=== PATIENT | female | born 1955 | race Caucasian/White ===

== ENCOUNTER 2019-01-18 15:20 | Observation (INO) ==
[2019-01-18] MEDS ORDERED: ASPIRIN 325 MG TABLET PO STA (16:15)
[2019-01-18] MEDS: NITROGLYCERIN SL 0.4 MG TABLET SL PRN ×3 (16:22→16:53)
[2019-01-18 16:26] LABS: Basophils # 0.1 10*3/uL (0.0-0.2); Eosinophils # 0.1 10*3/uL (0.0-0.87); Eosinophils % 1.8 % (0.00-10.9); Hematocrit 37.6 VOL% (35.7-47.0); Immature Granulocytes % 0.6 %; Immature Granulocytes Absolute 0.04 #; Lymphocytes # 2.5 10*3/uL (1.4-4.0); Lymphocytes % 34.5 % (21.3-54.2); Mean Corpuscular HGB Conc 31.9 GM/DL (32-36); Mean Corpuscular Volume 90.2 FL (87-102); Mean Platelet Volume 9.5 FL (9.6-12.0); Neutrophils % 55.1 % (38.7-73.9); Platelet Count 194 T/CUMM (130-400); Red Blood Count 4.17 MC/CUMM (3.8-5.5); Red Cell Distribution Width 14.1 % (9.3-17.3); White Blood Count 7.2 T/CUMM (4-12)
[2019-01-18 16:41] LABS: INR 0.9; PT Patient Result 10.1 SECS
[2019-01-18 16:44] LABS: Calcium 8.5 MG/DL (8.5-10.1); Osmolality,Calculated 282.4 MOS/KG (273-304)
[2019-01-18] MEDS ORDERED: MORPHINE 4 MG/1 ML VIAL IV STA (17:03)
[2019-01-18] MEDS ORDERED: ONDANSETRON 4 MG/2 ML VIAL IV STA (17:04)
[2019-01-18] MEDS ORDERED: POTASSIUM CHLORIDE 20 MEQ TABLET PO PRN (17:33)
[2019-01-18] MEDS ORDERED: MAGNESIUM SULF RIDER 2 GM in PREMIX 1 EACH IV PRN (17:33)
[2019-01-18] MEDS ORDERED: DOCUSATE SODIUM 100 MG CAPSULE PO PRN (17:33)
[2019-01-18] MEDS ORDERED: ACETAMINOPHEN 325 MG TABLET PO PRN (17:33)
[2019-01-18] MEDS ORDERED: GLUCAGON 1 MG VIAL IM PRN (17:33)
[2019-01-18] MEDS ORDERED: DEXTROSE 50% 25 GM/50 ML SYRINGE IV PRN (17:33)
[2019-01-18] MEDS: INSULIN REGULAR 100 UNIT/ML SUBCUT SCH (18:41)
[2019-01-18] MEDS: ENOXAPARIN 80 MG/0.8 ML SYRINGE SUBCUT SCH (18:44)
[2019-01-18] MEDS: MORPHINE 4 MG/1 ML VIAL IV PRN (21:27)
[2019-01-18] MEDS: PREGABALIN 100 MG CAPSULE PO SCH (21:28)
[2019-01-18] MEDS: ROSUVASTATIN 20 MG TABLET PO SCH (21:28)
[2019-01-18] MEDS: Mirabegron [Myrbetriq] 50 MG PO SCH (22:23)
[2019-01-19] MEDS: INSULIN REGULAR 100 UNIT/ML SUBCUT SCH ×5 (00:10→23:25)
[2019-01-19] MEDS: MORPHINE 4 MG/1 ML VIAL IV PRN ×5 (01:35→20:57)
[2019-01-19] MEDS: ONDANSETRON 4 MG/2 ML VIAL IV PRN ×4 (01:41→20:56)
[2019-01-19 03:42] LABS: Basophils # 0.1 10*3/uL (0.0-0.2); Basophils % 0.9 % (0.0-0.8); Eosinophils # 0.2 10*3/uL (0.0-0.87); Hematocrit 36.1 VOL% (35.7-47.0); Hemoglobin 11.4 GM/DL (12.0-16.0); Immature Granulocytes % 0.6 %; Immature Granulocytes Absolute 0.03 #; Lymphocytes # 2.5 10*3/uL (1.4-4.0); Lymphocytes % 47.7 % (21.3-54.2); Mean Corpuscular HGB Conc 31.6 GM/DL (32-36); Mean Corpuscular Volume 90.9 FL (87-102); Mean Platelet Volume 10.2 FL (9.6-12.0); Monocytes % 11.4 % (1.7-12.7); Neutrophils % 36.4 % (38.7-73.9); Platelet Count 177 T/CUMM (130-400); Red Blood Count 3.97 MC/CUMM (3.8-5.5); Red Cell Distribution Width 14.3 % (9.3-17.3); White Blood Count 5.3 T/CUMM (4-12)
[2019-01-19 04:04] LABS: Calcium 8.7 MG/DL (8.5-10.1); Osmolality,Calculated 276.5 MOS/KG (273-304); Risk Ratio 4.91; VLDL CHOLESTEROL 58.2 MG/DL
[2019-01-19 04:20] LABS: Anisocytosis Slight; Eosinophils 2 % (0-10); Lymphocytes 49 % (20-55); Microcytosis 1+; Segmented Neutrophils 35 % (50-85); Total Cells Counted 100
[2019-01-19 04:21] LABS: Platelet Estimate Normal
[2019-01-19] MEDS: ENOXAPARIN 80 MG/0.8 ML SYRINGE SUBCUT SCH ×2 (06:20→17:45)
[2019-01-19] MEDS: LEVOTHYROXINE 112 MCG TABLET PO SCH (09:31)
[2019-01-19] MEDS: FOLIC ACID 1 MG TABLET PO SCH (09:31)
[2019-01-19] MEDS: ASPIRIN EC 81 MG TABLET PO SCH (09:31)
[2019-01-19] MEDS: PREGABALIN 100 MG CAPSULE PO SCH ×2 (09:31→20:45)
[2019-01-19] MEDS: PANTOPRAZOLE 40 MG TABLET PO SCH (09:31)
[2019-01-19] MEDS: METOPROLOL SUCCINATE XL 25 MG TABLET PO SCH (09:32)
[2019-01-19] MEDS: CETIRIZINE 10 MG TABLET PO SCH (09:32)
[2019-01-19] MEDS: LOSARTAN 25 MG TABLET PO SCH (09:32)
[2019-01-19] MEDS: ROSUVASTATIN 20 MG TABLET PO SCH (20:45)
[2019-01-19] MEDS: Mirabegron [Myrbetriq] 50 MG PO SCH (20:46)
[2019-01-20] MEDS: INSULIN REGULAR 100 UNIT/ML SUBCUT SCH ×4 (05:22→17:09)
[2019-01-20] MEDS: ENOXAPARIN 80 MG/0.8 ML SYRINGE SUBCUT SCH ×2 (05:44→17:34)
[2019-01-20] MEDS: LEVOTHYROXINE 112 MCG TABLET PO SCH (06:02)
[2019-01-20] MEDS ORDERED: REGADENOSON 0.4 MG/5 ML SYRINGE IV ONE (11:21)
[2019-01-20] MEDS: PREGABALIN 100 MG CAPSULE PO SCH ×2 (11:36→21:32)
[2019-01-20] MEDS: LOSARTAN 25 MG TABLET PO SCH (11:36)
[2019-01-20] MEDS: CETIRIZINE 10 MG TABLET PO SCH (11:36)
[2019-01-20] MEDS: PANTOPRAZOLE 40 MG TABLET PO SCH (11:37)
[2019-01-20] MEDS: METOPROLOL SUCCINATE XL 25 MG TABLET PO SCH (11:37)
[2019-01-20] MEDS: FOLIC ACID 1 MG TABLET PO SCH (11:37)
[2019-01-20] MEDS: ASPIRIN EC 81 MG TABLET PO SCH (11:37)
[2019-01-20] MEDS: ONDANSETRON 4 MG/2 ML VIAL IV PRN (11:38)
[2019-01-20] MEDS: MORPHINE 4 MG/1 ML VIAL IV PRN (11:40)
[2019-01-20] MEDS: KETOROLAC 30 MG/1 ML VIAL IV SCH (17:39)
[2019-01-20] MEDS: ROSUVASTATIN 20 MG TABLET PO SCH (21:32)
[2019-01-20] MEDS: Mirabegron [Myrbetriq] 50 MG PO SCH (21:35)
[2019-01-21] MEDS: INSULIN REGULAR 100 UNIT/ML SUBCUT SCH ×3 (00:26→11:48)
[2019-01-21] MEDS: KETOROLAC 30 MG/1 ML VIAL IV SCH ×3 (00:43→11:40)
[2019-01-21] MEDS: ENOXAPARIN 80 MG/0.8 ML SYRINGE SUBCUT SCH (05:07)
[2019-01-21] MEDS: LEVOTHYROXINE 112 MCG TABLET PO SCH (06:03)
[2019-01-21 08:33] LABS: Basophils % 0.8 % (0.0-0.8); Eosinophils # 0.1 10*3/uL (0.0-0.87); Eosinophils % 2.3 % (0.00-10.9); Hematocrit 37.2 VOL% (35.7-47.0); Hemoglobin 11.9 GM/DL (12.0-16.0); Immature Granulocytes % 0.4 %; Immature Granulocytes Absolute 0.02 #; Lymphocytes # 1.9 10*3/uL (1.4-4.0); Lymphocytes % 36.3 % (21.3-54.2); Mean Corpuscular Volume 89.4 FL (87-102); Mean Platelet Volume 10.1 FL (9.6-12.0); Monocytes % 11.8 % (1.7-12.7); Neutrophils % 48.4 % (38.7-73.9); Platelet Count 165 T/CUMM (130-400); Red Blood Count 4.16 MC/CUMM (3.8-5.5); Red Cell Distribution Width 13.8 % (9.3-17.3); White Blood Count 5.2 T/CUMM (4-12)
[2019-01-21] MEDS: LOSARTAN 25 MG TABLET PO SCH (08:43)
[2019-01-21] MEDS: PANTOPRAZOLE 40 MG TABLET PO SCH (08:43)
[2019-01-21] MEDS: CETIRIZINE 10 MG TABLET PO SCH (08:43)
[2019-01-21] MEDS: ASPIRIN EC 81 MG TABLET PO SCH (08:44)
[2019-01-21] MEDS: METOPROLOL SUCCINATE XL 25 MG TABLET PO SCH (08:44)
[2019-01-21] MEDS: FOLIC ACID 1 MG TABLET PO SCH (08:44)
[2019-01-21] MEDS ORDERED: ACETAMINOPHEN 325 MG TABLET PO SCH (09:00)
[2019-01-21 09:03] LABS: Albumin 3.3 G/DL (3.4-5.0); Bilirubin,Total 0.7 MG/DL (0.2-1.0); Calcium 8.9 MG/DL (8.5-10.1); Osmolality,Calculated 278.7 MOS/KG (273-304); Total Protein 6.9 G/DL (6.4-8.3)
[2019-01-21] MEDS: PREGABALIN 100 MG CAPSULE PO SCH (09:38)
[2019-01-21 11:39] VITALS: BP 137/73
[2019-01-21] MEDS ORDERED: ROSUVASTATIN 20 MG TABLET PO SCH (21:00)
== END 2019-01-21 13:16 | disposition home or self-care (01) ==
LOC: N.EDINP 15:20 → N.ED 15:20 → N.TELES 18:14

== ENCOUNTER 2019-01-26 14:42 | Inpatient (IN) ==
[2019-01-26 15:13] LABS: Basophils # 0.1 10*3/uL (0.0-0.2); Basophils % 0.8 % (0.0-0.8); Eosinophils # 0.1 10*3/uL (0.0-0.87); Eosinophils % 1.5 % (0.00-10.9); Hematocrit 38.6 VOL% (35.7-47.0); Hemoglobin 12.4 GM/DL (12.0-16.0); Immature Granulocytes % 0.6 %; Immature Granulocytes Absolute 0.04 #; Lymphocytes # 2.3 10*3/uL (1.4-4.0); Lymphocytes % 32.2 % (21.3-54.2); Mean Corpuscular HGB Conc 32.1 GM/DL (32-36); Mean Platelet Volume 9.7 FL (9.6-12.0); Monocytes % 8.1 % (1.7-12.7); Neutrophils % 56.8 % (38.7-73.9); Platelet Count 220 T/CUMM (130-400); Red Blood Count 4.24 MC/CUMM (3.8-5.5); Red Cell Distribution Width 14.2 % (9.3-17.3); White Blood Count 7.2 T/CUMM (4-12)
[2019-01-26 15:25] LABS: INR 0.9
[2019-01-26 15:37] LABS: Alanine Aminotransferase 48 U/L (13-56); Albumin 3.8 G/DL (3.4-5.0); Alkaline Phosphatase 86 U/L (45-117); Aspartate Amino Transferase 28 U/L (0-37); Blood Urea Nitrogen 10 MG/DL (7-18); Calcium 9.1 MG/DL (8.5-10.1); Glucose 115 MG/DL (74-106); Osmolality,Calculated 278.4 MOS/KG (273-304); Total Protein 7.5 G/DL (6.4-8.3); Troponin I < 0.015 NG/ML (0.00-0.045)
[2019-01-26] MEDS ORDERED: ALUM/MAG/SIMETH/LIDO VISC 1:1 30 ML BOTTLE PO STA (16:05)
[2019-01-26] MEDS ORDERED: METOCLOPRAMIDE 10 MG/2 ML VIAL IV STA (16:05)
[2019-01-26] MEDS ORDERED: FAMOTIDINE 20 MG/2 ML VIAL IV STA (16:05)
[2019-01-26] MEDS ORDERED: ONDANSETRON 4 MG/2 ML VIAL IV STA (16:05)
[2019-01-26] MEDS ORDERED: ROSUVASTATIN 20 MG TABLET PO SCH (21:00)
[2019-01-26] MEDS ORDERED: Mirabegron [Myrbetriq] 50 MG PO SCH (21:00)
[2019-01-26] MEDS ORDERED: ENOXAPARIN 40 MG/0.4 ML SYRINGE SUBCUT SCH (21:00)
[2019-01-26] MEDS ORDERED: GLUCAGON 1 MG VIAL IM PRN (21:26)
[2019-01-26] MEDS ORDERED: DEXTROSE 50% 25 GM/50 ML VIAL IV PRN (21:26)
[2019-01-26] MEDS: MAGNESIUM OXIDE 400 MG TABLET PO SCH (22:29)
[2019-01-26] MEDS: METOPROLOL SUCCINATE XL 25 MG TABLET PO SCH (22:29)
[2019-01-26] MEDS: PREGABALIN 100 MG CAPSULE PO SCH (22:29)
[2019-01-26] MEDS: INSULIN REGULAR 100 UNIT/ML SUBCUT SCH (22:32)
[2019-01-26] MEDS: MORPHINE 4 MG/1 ML VIAL IV PRN (23:32)
[2019-01-27] MEDS: MORPHINE 4 MG/1 ML VIAL IV PRN ×4 (03:28→20:23)
[2019-01-27] MEDS: LEVOTHYROXINE 112 MCG TABLET PO SCH (06:19)
[2019-01-27] MEDS: INSULIN REGULAR 100 UNIT/ML SUBCUT SCH ×4 (08:15→23:08)
[2019-01-27] MEDS: FOLIC ACID 1 MG TABLET PO SCH (08:15)
[2019-01-27] MEDS: CETIRIZINE 10 MG TABLET PO SCH (08:15)
[2019-01-27] MEDS: PREGABALIN 100 MG CAPSULE PO SCH ×3 (08:15→20:22)
[2019-01-27] MEDS: LOSARTAN 25 MG TABLET PO SCH (08:15)
[2019-01-27] MEDS: PANTOPRAZOLE 40 MG TABLET PO SCH (08:15)
[2019-01-27] MEDS ORDERED: Dapagliflozin [Farxiga] 10 MG PO SCH (09:00)
[2019-01-27] MEDS: ONDANSETRON 4 MG/2 ML VIAL IV PRN ×3 (10:16→20:26)
[2019-01-27] MEDS: ASPIRIN EC 81 MG TABLET PO SCH (12:49)
[2019-01-27] MEDS ORDERED: diphenhydrAMINE CAP 25 MG CAPSULE PO ONE (14:50)
[2019-01-27] MEDS ORDERED: POTASSIUM CHLORIDE RIDER 10 MEQ in PREMIX 1 EACH IV PRN (14:50)
[2019-01-27] MEDS ORDERED: DIAZEPAM 5 MG TABLET PO ONE (14:50)
[2019-01-27] MEDS ORDERED: ASPIRIN 325 MG TABLET PO ONE (14:50)
[2019-01-27] MEDS ORDERED: MAGNESIUM SULF RIDER 2 GM in PREMIX 1 EACH IV PRN (14:50)
[2019-01-27] MEDS ORDERED: SODIUM CHLORIDE 0.45% 1,000 ML IV SCH (15:00)
[2019-01-27] MEDS ORDERED: LIDOCAINE 1% 20 ML VIAL ONE (15:02)
[2019-01-27] MEDS ORDERED: fentaNYL 100 MCG/2 ML VIAL ONE (15:37)
[2019-01-27] MEDS ORDERED: MIDAZOLAM 2 MG/2 ML VIAL ONE (15:37)
[2019-01-27] MEDS ORDERED: ASPIRIN CHEW 81 MG TABLET PO ONE (15:46)
[2019-01-27] MEDS ORDERED: HEPARIN 5,000 UNIT/1 ML VIAL ONE ×2 (15:56→16:22)
[2019-01-27] MEDS ORDERED: TIROFIBAN 5,000 MCG/100 ML PREMIX IV ONE (16:17)
[2019-01-27] MEDS ORDERED: TIROFIBAN 5,000 MCG/100 ML PREMIX IV SCH (16:24)
[2019-01-27] MEDS ORDERED: TICAGRELOR 90 MG TABLET ONE (17:06)
[2019-01-27] MEDS ORDERED: ACETAMINOPHEN 325 MG TABLET PO PRN (17:50)
[2019-01-27] MEDS ORDERED: SODIUM CHLORIDE 0.9% 1,000 ML IV SCH (20:00)
[2019-01-27] MEDS: MAGNESIUM OXIDE 400 MG TABLET PO SCH (20:21)
[2019-01-27] MEDS: TICAGRELOR 90 MG TABLET PO SCH (20:22)
[2019-01-27] MEDS: ROSUVASTATIN 10 MG TABLET PO SCH (20:22)
[2019-01-27] MEDS: METOPROLOL SUCCINATE XL 25 MG TABLET PO SCH (20:22)
[2019-01-27 21:05] LABS: Troponin I 0.054 NG/ML (0.00-0.045)
[2019-01-28 02:48] LABS: Basophils # 0.1 10*3/uL (0.0-0.2); Basophils % 0.8 % (0.0-0.8); Eosinophils # 0.1 10*3/uL (0.0-0.87); Eosinophils % 1.8 % (0.00-10.9); Hematocrit 32.7 VOL% (35.7-47.0); Hemoglobin 10.6 GM/DL (12.0-16.0); Immature Granulocytes % 0.5 %; Immature Granulocytes Absolute 0.03 #; Lymphocytes # 1.6 10*3/uL (1.4-4.0); Lymphocytes % 24.4 % (21.3-54.2); Mean Corpuscular HGB Conc 32.4 GM/DL (32-36); Mean Corpuscular Volume 89.6 FL (87-102); Mean Platelet Volume 9.7 FL (9.6-12.0); Monocytes % 7.6 % (1.7-12.7); Neutrophils % 64.9 % (38.7-73.9); Platelet Count 182 T/CUMM (130-400); Red Blood Count 3.65 MC/CUMM (3.8-5.5); Red Cell Distribution Width 13.8 % (9.3-17.3); White Blood Count 6.6 T/CUMM (4-12)
[2019-01-28 03:08] LABS: Alanine Aminotransferase 42 U/L (13-56); Albumin 3.4 G/DL (3.4-5.0); Alkaline Phosphatase 71 U/L (45-117); Aspartate Amino Transferase 23 U/L (0-37); Bilirubin,Total < 0.39 MG/DL (0.2-1.0); Blood Urea Nitrogen 11 MG/DL (7-18); Calcium 8.1 MG/DL (8.5-10.1); Glucose 147 MG/DL (74-106); Osmolality,Calculated 274.8 MOS/KG (273-304); Total Protein 6.5 G/DL (6.4-8.3)
[2019-01-28 03:12] LABS: Troponin I 0.066 NG/ML (0.00-0.045)
[2019-01-28] MEDS: LEVOTHYROXINE 112 MCG TABLET PO SCH (06:23)
[2019-01-28] MEDS ORDERED: POTASSIUM CHLORIDE RIDER 10 MEQ in PREMIX 1 EACH IV PRN (07:04)
[2019-01-28] MEDS ORDERED: MAGNESIUM SULF RIDER 4 GM in PREMIX 1 EACH IV PRN (07:05)
[2019-01-28] MEDS ORDERED: MAGNESIUM SULF RIDER 2 GM in PREMIX 1 EACH IV PRN (07:05)
[2019-01-28] MEDS: FOLIC ACID 1 MG TABLET PO SCH (08:23)
[2019-01-28] MEDS: CETIRIZINE 10 MG TABLET PO SCH (08:24)
[2019-01-28] MEDS: ASPIRIN EC 81 MG TABLET PO SCH (08:24)
[2019-01-28] MEDS: TICAGRELOR 90 MG TABLET PO SCH ×2 (08:24→21:05)
[2019-01-28] MEDS: LOSARTAN 25 MG TABLET PO SCH (08:24)
[2019-01-28] MEDS: PANTOPRAZOLE 40 MG TABLET PO SCH (08:24)
[2019-01-28] MEDS: PREGABALIN 100 MG CAPSULE PO SCH ×2 (08:24→21:04)
[2019-01-28] MEDS: INSULIN REGULAR 100 UNIT/ML SUBCUT SCH ×4 (08:28→21:06)
[2019-01-28 10:19] LABS: Troponin I 0.051 NG/ML (0.00-0.045)
[2019-01-28 10:23] LABS: Free T4 (Free Thyroxine) 1.1 NG/DL (0.76-1.46)
[2019-01-28] MEDS ORDERED: POTASSIUM CHLORIDE 20 MEQ TABLET PO ONE (10:45)
[2019-01-28] MEDS ORDERED: LEVOTHYROXINE 112 MCG TABLET PO SCH (11:41)
[2019-01-28] MEDS ORDERED: CILOSTAZOL 50 MG TABLET PO SCH ×2 (18:09→21:00)
[2019-01-28] MEDS: HYOSCYAMINE 0.125 MG TABLET SL SCH ×2 (18:49→21:06)
[2019-01-28] MEDS: CILOSTAZOL 50 MG TABLET PO SCH ×2 (18:49→21:06)
[2019-01-28] MEDS: MORPHINE 4 MG/1 ML VIAL IV PRN (21:04)
[2019-01-28] MEDS: MAGNESIUM OXIDE 400 MG TABLET PO SCH (21:05)
[2019-01-28] MEDS: ROSUVASTATIN 10 MG TABLET PO SCH (21:05)
[2019-01-28] MEDS: METOPROLOL SUCCINATE XL 25 MG TABLET PO SCH (21:06)
[2019-01-29 05:23] LABS: Basophils # 0.1 10*3/uL (0.0-0.2); Basophils % 0.8 % (0.0-0.8); Eosinophils # 0.2 10*3/uL (0.0-0.87); Eosinophils % 2.8 % (0.00-10.9); Hematocrit 34.2 VOL% (35.7-47.0); Hemoglobin 11.3 GM/DL (12.0-16.0); Immature Granulocytes % 0.6 %; Immature Granulocytes Absolute 0.04 #; Lymphocytes # 2.4 10*3/uL (1.4-4.0); Lymphocytes % 34.1 % (21.3-54.2); Mean Corpuscular Volume 89.8 FL (87-102); Mean Platelet Volume 9.8 FL (9.6-12.0); Neutrophils % 51.7 % (38.7-73.9); Platelet Count 216 T/CUMM (130-400); Red Blood Count 3.81 MC/CUMM (3.8-5.5); White Blood Count 7.1 T/CUMM (4-12)
[2019-01-29 05:47] LABS: Calcium 8.7 MG/DL (8.5-10.1); Osmolality,Calculated 276.7 MOS/KG (273-304)
[2019-01-29] MEDS: INSULIN REGULAR 100 UNIT/ML SUBCUT SCH ×2 (08:34→12:26)
[2019-01-29] MEDS ORDERED: ASPIRIN CHEW 81 MG TABLET PO SCH (09:00)
[2019-01-29] MEDS: FOLIC ACID 1 MG TABLET PO SCH (09:50)
[2019-01-29] MEDS: CILOSTAZOL 50 MG TABLET PO SCH (09:50)
[2019-01-29] MEDS: TICAGRELOR 90 MG TABLET PO SCH (09:51)
[2019-01-29] MEDS: CETIRIZINE 10 MG TABLET PO SCH (09:51)
[2019-01-29] MEDS: PREGABALIN 100 MG CAPSULE PO SCH (09:51)
[2019-01-29] MEDS: LOSARTAN 25 MG TABLET PO SCH (09:51)
[2019-01-29] MEDS: PANTOPRAZOLE 40 MG TABLET PO SCH (09:52)
[2019-01-29] MEDS: HYOSCYAMINE 0.125 MG TABLET SL SCH (09:52)
[2019-01-29 12:06] VITALS: BP 116/57
== END 2019-01-29 14:00 | disposition home or self-care (01) | DRG 247 ==
LOC: N.ED 14:42 → N.EDINP 14:42 → N.4E 20:06 → N.TELEN 01-27 18:59
PROVIDERS: ADMIT Internal Medicine; ATTEND Internal Medicine
PROC: CLCCHCL (ICD-10-PCS; 2019-01-27 15:45)

== ENCOUNTER 2019-02-22 17:12 | Observation (INO) ==
[2019-02-22 18:25] LABS: Basophils # 0.1 10*3/uL (0.0-0.2); Basophils % 0.7 % (0.0-0.8); Eosinophils # 0.1 10*3/uL (0.0-0.87); Hematocrit 37.5 VOL% (35.7-47.0); Hemoglobin 12.6 GM/DL (12.0-16.0); Immature Granulocytes % 0.3 %; Immature Granulocytes Absolute 0.03 #; Lymphocytes # 2.3 10*3/uL (1.4-4.0); Lymphocytes % 25.3 % (21.3-54.2); Mean Corpuscular HGB Conc 33.6 GM/DL (32-36); Mean Corpuscular Volume 88.7 FL (87-102); Mean Platelet Volume 9.7 FL (9.6-12.0); Monocytes % 7.6 % (1.7-12.7); Neutrophils % 65.1 % (38.7-73.9); Platelet Count 205 T/CUMM (130-400); Red Blood Count 4.23 MC/CUMM (3.8-5.5); Red Cell Distribution Width 13.8 % (9.3-17.3)
[2019-02-22 18:36] LABS: INR 0.9
[2019-02-22 18:49] LABS: Albumin 4.3 G/DL (3.4-5.0); Bilirubin,Total 0.4 MG/DL (0.2-1.0); Calcium 9.8 MG/DL (8.5-10.1); Osmolality,Calculated 283.4 MOS/KG (273-304); Total Protein 8.1 G/DL (6.4-8.3)
[2019-02-22] MEDS ORDERED: ONDANSETRON 4 MG/2 ML VIAL IV STA (18:58)
[2019-02-22] MEDS ORDERED: MORPHINE 4 MG/1 ML VIAL IV STA (18:58)
[2019-02-22] MEDS ORDERED: SODIUM CHLORIDE 0.9% 1,000 ML IV STA (19:02)
[2019-02-22] MEDS ORDERED: GLUCAGON 1 MG VIAL IM PRN (20:11)
[2019-02-22] MEDS ORDERED: ONDANSETRON 4 MG/2 ML VIAL IV PRN (20:11)
[2019-02-22] MEDS ORDERED: DEXTROSE 50% 25 GM/50 ML VIAL IV PRN (20:11)
[2019-02-22] MEDS ORDERED: ACETAMINOPHEN 325 MG TABLET PO PRN (20:11)
[2019-02-22] MEDS: HYDROmorphone 2 MG/1 ML VIAL IV PRN ×2 (20:52→23:18)
[2019-02-22] MEDS: DOCUSATE SODIUM 100 MG CAPSULE PO SCH (22:35)
[2019-02-22] MEDS: SODIUM CHLORIDE 0.45% 1,000 ML IV SCH (22:35)
[2019-02-22] MEDS: INSULIN REGULAR 100 UNIT/ML SUBCUT SCH (22:36)
[2019-02-22] MEDS ORDERED: PREGABALIN 100 MG CAPSULE PO SCH (23:06)
[2019-02-23] MEDS: HYDROmorphone 2 MG/1 ML VIAL IV PRN (02:51)
[2019-02-23] MEDS ORDERED: ALBUTEROL 2.5 MG/3 ML NEB RESP TX PRN (07:00)
[2019-02-23] MEDS ORDERED: NITROGLYCERIN SL 0.4 MG TABLET SL PRN (07:00)
[2019-02-23] MEDS ORDERED: CLOPIDOGREL 300 MG TABLET PO ONE (08:13)
[2019-02-23] MEDS: SODIUM CHLORIDE 0.45% 1,000 ML IV SCH ×2 (08:26→17:16)
[2019-02-23] MEDS: DOCUSATE SODIUM 100 MG CAPSULE PO SCH (08:40)
[2019-02-23] MEDS: INSULIN REGULAR 100 UNIT/ML SUBCUT SCH ×3 (08:42→17:18)
[2019-02-23] MEDS ORDERED: LOSARTAN 50 MG TABLET PO SCH (09:00)
[2019-02-23] MEDS ORDERED: metFORMIN 500 MG TABLET PO SCH (09:00)
[2019-02-23] MEDS ORDERED: ASPIRIN EC 81 MG TABLET PO SCH (09:00)
[2019-02-23] MEDS ORDERED: PREGABALIN 100 MG CAPSULE PO SCH ×2 (09:00→22:52)
[2019-02-23] MEDS ORDERED: DAPAGLIFLOZIN 10 MG PO SCH (09:00)
[2019-02-23] MEDS ORDERED: LEVOTHYROXINE 125 MCG TABLET PO SCH (09:00)
[2019-02-23] MEDS ORDERED: PANTOPRAZOLE 40 MG TABLET PO SCH (09:00)
[2019-02-23 09:28] LABS: Risk Ratio 2.24; Troponin I < 0.015 NG/ML (0.00-0.045)
[2019-02-23 12:02] LABS: Troponin I < 0.015 NG/ML (0.00-0.045)
[2019-02-23 14:24] LABS: Troponin I < 0.015 NG/ML (0.00-0.045)
[2019-02-23 16:49] VITALS: BP 135/77
[2019-02-23] MEDS ORDERED: NF- (Mirabegron [Myrbetriq] 50 MG) PO SCH (21:00)
[2019-02-23] MEDS ORDERED: MONTELUKAST 10 MG TABLET PO SCH (21:00)
[2019-02-23] MEDS ORDERED: SIMVASTATIN 10 MG TABLET PO SCH (21:00)
[2019-02-23] MEDS ORDERED: ROSUVASTATIN 10 MG TABLET PO SCH (21:00)
[2019-02-23] MEDS ORDERED: METOPROLOL SUCCINATE XL 25 MG TABLET PO SCH (21:00)
[2019-02-23] MEDS ORDERED: MAGNESIUM OXIDE 400 MG TABLET PO SCH (21:00)
[2019-02-24] MEDS ORDERED: CLOPIDOGREL 75 MG TABLET PO SCH (09:00)
[2019-02-25] MEDS ORDERED: EXENATIDE MICROSPHERES 2 MG SUBCUT SCH (07:00)
[2019-02-27] MEDS ORDERED: ETANERCEPT 50 MG SUBCUT SCH (07:00)
== END 2019-02-23 20:00 | disposition home or self-care (01) ==
LOC: N.ED 17:12 → N.EDINP 17:12 → N.TELES 20:30
PROVIDERS: ADMIT Family Medicine; ATTEND Family Medicine

== ENCOUNTER 2019-11-20 09:30 | Inpatient (IN) ==
[2019-11-20] MEDS ORDERED: ACETAMINOPHEN 500 MG TABLET PO STA (09:54)
[2019-11-20] MEDS ORDERED: PIPERACILLIN/TAZOBACTAM 3,375 MG in SODIUM CHLORIDE 0.9% 100 ML IV STA (10:16)
[2019-11-20] MEDS ORDERED: ALBUTEROL 2.5 MG/3 ML NEB RESP TX STA (10:16)
[2019-11-20 11:46] LABS: Basophils % 0.2 % (0.0-0.8); Hematocrit 40.4 VOL% (35.7-47.0); Hemoglobin 13.6 GM/DL (12.0-16.0); Immature Granulocytes % 0.5 %; Immature Granulocytes Absolute 0.02 #; Lymphocytes # 1.2 10*3/uL (1.4-4.0); Lymphocytes % 26.8 % (21.3-54.2); Mean Corpuscular HGB Conc 33.7 GM/DL (32-36); Mean Corpuscular Volume 91.6 FL (87-102); Mean Platelet Volume 9.5 FL (9.6-12.0); Monocytes % 6.7 % (1.7-12.7); Neutrophils % 65.8 % (38.7-73.9); Platelet Count 119 T/CUMM (130-400); Red Blood Count 4.41 MC/CUMM (3.8-5.5); Red Cell Distribution Width 13.1 % (9.3-17.3); White Blood Count 4.4 T/CUMM (4-12)
[2019-11-20 11:56] LABS: INR 0.9; PT Patient Result 10.3 SECS (9.6-12.2)
[2019-11-20] MEDS ORDERED: ONDANSETRON 4 MG/2 ML VIAL ONE (12:01)
[2019-11-20 12:11] LABS: Albumin 3.5 G/DL (3.4-5.0); Bilirubin,Total 0.7 MG/DL (0.2-1.0); Calcium 8.3 MG/DL (8.5-10.1); Osmolality,Calculated 267.7 MOS/KG (273-304); Total Protein 6.8 G/DL (6.4-8.3)
[2019-11-20 12:12] LABS: Troponin I < 0.015 NG/ML (0.00-0.045)
[2019-11-20 12:24] LABS: Ferritin 142.8 ng/ml (8-252)
[2019-11-20] MEDS ORDERED: ALBUTEROL/IPRATROPIUM 3 ML NEB RESP TX PRN (14:17)
[2019-11-20] MEDS ORDERED: DEXTROSE 10% 250 ML BAG IV PRN (14:17)
[2019-11-20] MEDS ORDERED: GLUCAGON 1 MG VIAL IM PRN (14:17)
[2019-11-20] MEDS ORDERED: AZITHROMYCIN INJ 500 MG in SODIUM CHLORIDE 0.9% 250 ML IV SCH (14:17)
[2019-11-20] MEDS: SODIUM CHLORIDE 0.9% 1,000 ML IV SCH (15:34)
[2019-11-20] MEDS: INSULIN REGULAR 100 UNIT/ML SUBCUT SCH (18:17)
[2019-11-20] MEDS: ONDANSETRON 4 MG/2 ML VIAL IV PRN (20:22)
[2019-11-20] MEDS: ACETAMINOPHEN 325 MG TABLET PO PRN (20:25)
[2019-11-20] MEDS: HYDROXYCHLOROQUINE 200 MG TABLET PO SCH (20:25)
[2019-11-20] MEDS: DOCUSATE SODIUM 100 MG CAPSULE PO SCH (20:26)
[2019-11-21] MEDS: INSULIN REGULAR 100 UNIT/ML SUBCUT SCH ×4 (00:11→18:19)
[2019-11-21] MEDS: ACETAMINOPHEN 325 MG TABLET PO PRN ×2 (00:12→15:55)
[2019-11-21] MEDS: ONDANSETRON 4 MG/2 ML VIAL IV PRN ×4 (04:47→20:52)
[2019-11-21 05:35] LABS: Basophils % 0.3 % (0.0-0.8); Hematocrit 41.4 VOL% (35.7-47.0); Immature Granulocytes % 0.3 %; Immature Granulocytes Absolute 0.02 #; Lymphocytes # 1.7 10*3/uL (1.4-4.0); Lymphocytes % 28.8 % (21.3-54.2); Mean Corpuscular HGB Conc 33.8 GM/DL (32-36); Mean Platelet Volume 9.7 FL (9.6-12.0); Monocytes % 5.4 % (1.7-12.7); Neutrophils % 65.2 % (38.7-73.9); Platelet Count 119 T/CUMM (130-400); Red Cell Distribution Width 13.2 % (9.3-17.3)
[2019-11-21 05:58] LABS: Albumin 3.3 G/DL (3.4-5.0); Bilirubin,Total 0.8 MG/DL (0.2-1.0); Osmolality,Calculated 268.5 MOS/KG (273-304); Total Protein 7.3 G/DL (6.4-8.3)
[2019-11-21] MEDS: DOCUSATE SODIUM 100 MG CAPSULE PO SCH ×2 (08:43→21:53)
[2019-11-21] MEDS: PANTOPRAZOLE 40 MG TABLET PO SCH (08:44)
[2019-11-21] MEDS: HYDROXYCHLOROQUINE 200 MG TABLET PO SCH ×2 (08:44→22:39)
[2019-11-21] MEDS ORDERED: AZITHROMYCIN 250 MG TABLET PO SCH (09:00)
[2019-11-21] MEDS ORDERED: NITROGLYCERIN SL 0.4 MG TABLET SL PRN (09:29)
[2019-11-21] MEDS: AZITHROMYCIN INJ 250 MG in SODIUM CHLORIDE 0.9% 150 ML IV SCH (12:30)
[2019-11-21] MEDS: SODIUM CHLORIDE 0.9% 1,000 ML IV SCH (16:35)
[2019-11-21] MEDS: PREGABALIN 100 MG CAPSULE PO SCH (22:39)
[2019-11-21] MEDS: CLOPIDOGREL 75 MG TABLET PO SCH (22:39)
[2019-11-21] MEDS: METOPROLOL SUCCINATE XL 25 MG TABLET PO SCH (22:39)
[2019-11-21] MEDS: LOSARTAN 50 MG TABLET PO SCH (22:39)
[2019-11-21] MEDS: MAGNESIUM OXIDE 400 MG TABLET PO SCH (22:39)
[2019-11-21] MEDS: ASPIRIN EC 81 MG TABLET PO SCH (22:40)
[2019-11-21] MEDS: SIMVASTATIN 10 MG TABLET PO SCH (22:43)
[2019-11-21] MEDS: Mirabegron [Myrbetriq] 50 MG PO SCH (22:43)
[2019-11-22] MEDS: ONDANSETRON 4 MG/2 ML VIAL IV PRN ×5 (01:05→22:06)
[2019-11-22] MEDS: INSULIN REGULAR 100 UNIT/ML SUBCUT SCH ×4 (01:05→18:07)
[2019-11-22] MEDS: LEVOTHYROXINE 125 MCG TABLET PO SCH (06:08)
[2019-11-22] MEDS ORDERED: ZINC GLUCONATE 50 MG TABLET PO SCH (09:00)
[2019-11-22] MEDS ORDERED: Exenatide Microspheres [Bydureon] 2 MG SUBCUT SCH (09:00)
[2019-11-22] MEDS: PREGABALIN 100 MG CAPSULE PO SCH ×2 (10:07→21:55)
[2019-11-22] MEDS: PANTOPRAZOLE 40 MG TABLET PO SCH ×2 (10:08→10:40)
[2019-11-22] MEDS: HYDROXYCHLOROQUINE 200 MG TABLET PO SCH ×2 (10:08→21:56)
[2019-11-22] MEDS: FOLIC ACID 1 MG TABLET PO SCH (10:09)
[2019-11-22] MEDS: DOCUSATE SODIUM 100 MG CAPSULE PO SCH ×2 (10:40→21:55)
[2019-11-22] MEDS: Dapagliflozin [Farxiga] 10 MG PO SCH (10:40)
[2019-11-22] MEDS: AZITHROMYCIN INJ 250 MG in SODIUM CHLORIDE 0.9% 150 ML IV SCH (12:49)
[2019-11-22 14:29] LABS: Apearance,Urine Slightly Hazy (Clear); Bilirubin,Urine Negative (Negative); Blood, Urine Small mg/dL (Negative); Glucose,Urine (UA) >=500 mg/dL (Negative); Ketones,Urine 5 mg/dL (Negative); Nitrite,Urine Negative (Negative); Protein,Urine Negative; RBC,Urine 17 /HPF (0-4); Urine Color Yellow (Yellow); Urine Specific Gravity 1.015 (1.001-1.035); Urine Urobilinogen < 2.0 EU/DL (0.2-1.0)
[2019-11-22] MEDS: SIMVASTATIN 10 MG TABLET PO SCH (21:54)
[2019-11-22] MEDS: METOPROLOL SUCCINATE XL 25 MG TABLET PO SCH (21:54)
[2019-11-22] MEDS: MAGNESIUM OXIDE 400 MG TABLET PO SCH (21:55)
[2019-11-22] MEDS: ASPIRIN EC 81 MG TABLET PO SCH (21:55)
[2019-11-22] MEDS: LOSARTAN 50 MG TABLET PO SCH (21:55)
[2019-11-22] MEDS: CLOPIDOGREL 75 MG TABLET PO SCH (21:55)
[2019-11-22] MEDS: Mirabegron [Myrbetriq] 50 MG PO SCH (22:14)
[2019-11-23] MEDS: INSULIN REGULAR 100 UNIT/ML SUBCUT SCH ×4 (00:50→18:06)
[2019-11-23] MEDS: SODIUM CHLORIDE 0.9% 1,000 ML IV SCH ×2 (01:37→22:40)
[2019-11-23] MEDS: ONDANSETRON 4 MG/2 ML VIAL IV PRN ×5 (02:44→22:40)
[2019-11-23] MEDS: LEVOTHYROXINE 125 MCG TABLET PO SCH (06:16)
[2019-11-23] MEDS ORDERED: ZINC SULFATE 220 MG CAPSULE PO SCH (09:00)
[2019-11-23] MEDS: HYDROXYCHLOROQUINE 200 MG TABLET PO SCH ×2 (09:25→20:40)
[2019-11-23] MEDS: PANTOPRAZOLE 40 MG TABLET PO SCH (09:25)
[2019-11-23] MEDS: FOLIC ACID 1 MG TABLET PO SCH (09:25)
[2019-11-23] MEDS: DOCUSATE SODIUM 100 MG CAPSULE PO SCH ×2 (09:25→20:40)
[2019-11-23] MEDS: Dapagliflozin [Farxiga] 10 MG PO SCH (09:25)
[2019-11-23] MEDS: PREGABALIN 100 MG CAPSULE PO SCH ×2 (09:25→20:40)
[2019-11-23] MEDS: AZITHROMYCIN INJ 250 MG in SODIUM CHLORIDE 0.9% 150 ML IV SCH (11:36)
[2019-11-23] MEDS: ASPIRIN EC 81 MG TABLET PO SCH (20:40)
[2019-11-23] MEDS: LOSARTAN 50 MG TABLET PO SCH (20:40)
[2019-11-23] MEDS: MAGNESIUM OXIDE 400 MG TABLET PO SCH (20:40)
[2019-11-23] MEDS: CLOPIDOGREL 75 MG TABLET PO SCH (20:40)
[2019-11-23] MEDS: SIMVASTATIN 10 MG TABLET PO SCH (20:40)
[2019-11-23] MEDS: METOPROLOL SUCCINATE XL 25 MG TABLET PO SCH (20:40)
[2019-11-23] MEDS: Mirabegron [Myrbetriq] 50 MG PO SCH (21:52)
[2019-11-24] MEDS: INSULIN REGULAR 100 UNIT/ML SUBCUT SCH ×3 (01:27→11:41)
[2019-11-24] MEDS: ONDANSETRON 4 MG/2 ML VIAL IV PRN ×2 (06:00→10:33)
[2019-11-24] MEDS: LEVOTHYROXINE 125 MCG TABLET PO SCH (06:12)
[2019-11-24] MEDS ORDERED: AZITHROMYCIN 250 MG TABLET PO ONE (09:00)
[2019-11-24] MEDS: PREGABALIN 100 MG CAPSULE PO SCH (10:30)
[2019-11-24] MEDS: PANTOPRAZOLE 40 MG TABLET PO SCH (10:31)
[2019-11-24] MEDS: FOLIC ACID 1 MG TABLET PO SCH (10:31)
[2019-11-24] MEDS: Dapagliflozin [Farxiga] 10 MG PO SCH (10:43)
[2019-11-24 11:20] VITALS: BP 118/56
[2019-11-24] MEDS: DOCUSATE SODIUM 100 MG CAPSULE PO SCH (11:20)
[2019-11-24] MEDS: HYDROXYCHLOROQUINE 200 MG TABLET PO SCH (11:20)
== END 2019-11-24 13:47 | disposition home health service (06) | DRG 195 ==
LOC: N.ED 09:30 → N.EDINP 09:30 → N.2E 14:00 → SUPCPDRO 11-22 16:27 → N.2W 11-24 08:43
PROVIDERS: ADMIT Family Medicine; ATTEND Family Medicine

== ENCOUNTER 2020-02-08 13:46 | Inpatient (IN) ==
[2020-02-08] MEDS ORDERED: SODIUM CHLORIDE 0.9% 500 ML IV STA (14:39)
[2020-02-08 14:49] LABS: Basophils # 0.1 10*3/uL (0.0-0.2); Basophils % 0.9 % (0.0-0.8); Eosinophils # 0.1 10*3/uL (0.0-0.87); Hematocrit 39.5 VOL% (35.7-47.0); Hemoglobin 13.5 GM/DL (12.0-16.0); Immature Granulocytes % 0.2 %; Immature Granulocytes Absolute 0.01 #; Lymphocytes # 1.6 10*3/uL (1.4-4.0); Lymphocytes % 23.3 % (21.3-54.2); Mean Corpuscular HGB Conc 34.2 GM/DL (32-36); Mean Corpuscular Volume 91.2 FL (87-102); Mean Platelet Volume 9.8 FL (9.6-12.0); Monocytes % 9.9 % (1.7-12.7); Neutrophils % 63.7 % (38.7-73.9); Platelet Count 179 T/CUMM (130-400); Red Blood Count 4.33 MC/CUMM (3.8-5.5); Red Cell Distribution Width 11.7 % (9.3-17.3); White Blood Count 6.7 T/CUMM (4-12)
[2020-02-08 14:56] LABS: PT Patient Result 11.1 SECS (9.8-11.9)
[2020-02-08 15:01] LABS: Alanine Aminotransferase 43 U/L (13-56); Albumin 3.3 G/DL (3.4-5.0); Alkaline Phosphatase 77 U/L (45-117); Aspartate Amino Transferase 24 U/L (0-37); Blood Urea Nitrogen 10 MG/DL (7-18); Calcium 8.2 MG/DL (8.5-10.1); Estimated Glom Filtration Rate 96 ML/MIN; Glucose 243 MG/DL (74-106); Osmolality,Calculated 279.8 MOS/KG (273-304); Troponin I < 0.015 NG/ML (0.00-0.045)
[2020-02-08 17:00] LABS: Apearance,Urine Slightly Hazy (Clear); Bilirubin,Urine Negative (Negative); Blood, Urine Negative (Negative); Glucose,Urine (UA) 150 mg/dL (Negative); Hyaline Casts,Urine 31 /LPF (0-3); Ketones,Urine Negative (Negative); Mucus,Urine Occasional /LPF (Occasional); Nitrite,Urine Negative (Negative); Protein,Urine 100 MG/DL; RBC,Urine 2 /HPF (0-4); Squamous Epithelial Cell,Urine Occasional /HPF (0-10); Urine Color Yellow (Yellow); Urine Specific Gravity 1.018 (1.001-1.035); Urine Urobilinogen < 2.0 EU/DL (0.2-1.0); WBC,Urine 9 /HPF (0-6)
[2020-02-08 17:04] LABS: Barbiturates Screen,Urine Negative (Negative); Benzodiazepines Screen,Urine Negative (Negative); Cannabinoid Screen,Urine Negative (Negative); Opiate Screen,Urine Positive (Negative); Phencyclidine Screen,Urine Negative (Negative)
[2020-02-08] MEDS ORDERED: GLUCAGON 1 MG VIAL IM PRN (20:14)
[2020-02-08] MEDS ORDERED: ACETAMINOPHEN 325 MG TABLET PO PRN ×2 (20:14)
[2020-02-08] MEDS ORDERED: ONDANSETRON ODT 4 MG TABLET PO PRN (20:14)
[2020-02-08] MEDS ORDERED: PROMETHAZINE 25 MG TABLET PO PRN (20:14)
[2020-02-08] MEDS ORDERED: NITROGLYCERIN SL 0.4 MG TABLET SL PRN (20:14)
[2020-02-08] MEDS ORDERED: DEXTROSE 10% 250 ML BAG IV PRN (20:14)
[2020-02-08] MEDS ORDERED: MORPHINE 4 MG/1 ML VIAL IV PRN (20:14)
[2020-02-08] MEDS ORDERED: ONDANSETRON 4 MG/2 ML VIAL IV PRN (20:14)
[2020-02-08] MEDS ORDERED: Mirabegron [Myrbetriq] 50 MG PO SCH (21:00)
[2020-02-08] MEDS: SODIUM CHLORIDE 0.9% 1,000 ML IV SCH (21:27)
[2020-02-08 21:29] LABS: Free T4 (Free Thyroxine) 1.42 NG/DL (0.76-1.46); Thyroid Stimulating Hormone 0.1 uIU/ml (0.358-3.74)
[2020-02-08 21:50] LABS: Troponin I < 0.015 NG/ML (0.00-0.045)
[2020-02-08] MEDS: ASPIRIN EC 81 MG TABLET PO SCH (22:09)
[2020-02-08] MEDS: SIMVASTATIN 10 MG TABLET PO SCH (22:09)
[2020-02-08] MEDS: METOPROLOL SUCCINATE XL 25 MG TABLET PO SCH (22:09)
[2020-02-08] MEDS: MAGNESIUM OXIDE 400 MG TABLET PO SCH (22:10)
[2020-02-08] MEDS: DOCUSATE SODIUM 100 MG CAPSULE PO SCH (22:10)
[2020-02-08] MEDS: LOSARTAN 50 MG TABLET PO SCH (22:12)
[2020-02-08] MEDS: CLOPIDOGREL 75 MG TABLET PO SCH (22:12)
[2020-02-08] MEDS: ENOXAPARIN 40 MG/0.4 ML SYRINGE SUBCUT SCH (22:14)
[2020-02-08] MEDS: INSULIN REGULAR 100 UNIT/ML SUBCUT SCH (22:30)
[2020-02-08] MEDS: PREGABALIN 100 MG CAPSULE PO SCH (23:43)
[2020-02-09] MEDS: INSULIN REGULAR 100 UNIT/ML SUBCUT SCH ×5 (01:59→23:32)
[2020-02-09 04:02] LABS: Basophils # 0.1 10*3/uL (0.0-0.2); Basophils % 0.9 % (0.0-0.8); Eosinophils # 0.2 10*3/uL (0.0-0.87); Eosinophils % 2.9 % (0.00-10.9); Hematocrit 37.5 VOL% (35.7-47.0); Hemoglobin 12.6 GM/DL (12.0-16.0); Immature Granulocytes % 0.2 %; Immature Granulocytes Absolute 0.01 #; Lymphocytes # 2.2 10*3/uL (1.4-4.0); Lymphocytes % 37.5 % (21.3-54.2); Mean Corpuscular HGB Conc 33.6 GM/DL (32-36); Mean Corpuscular Volume 91.5 FL (87-102); Mean Platelet Volume 9.8 FL (9.6-12.0); Monocytes % 9.8 % (1.7-12.7); Neutrophils % 48.7 % (38.7-73.9); Platelet Count 167 T/CUMM (130-400); Red Cell Distribution Width 11.9 % (9.3-17.3); White Blood Count 5.8 T/CUMM (4-12)
[2020-02-09 04:17] LABS: Albumin 3.1 G/DL (3.4-5.0); Bilirubin,Total 0.8 MG/DL (0.2-1.0); Calcium 8.1 MG/DL (8.5-10.1); Risk Ratio 4.71; Total Protein 6.6 G/DL (6.4-8.3); VLDL CHOLESTEROL 62.2 MG/DL
[2020-02-09] MEDS: SODIUM CHLORIDE 0.9% 1,000 ML IV SCH ×3 (05:22→22:01)
[2020-02-09] MEDS: LEVOTHYROXINE 125 MCG TABLET PO SCH (08:44)
[2020-02-09] MEDS: FOLIC ACID 1 MG TABLET PO SCH (08:44)
[2020-02-09] MEDS ORDERED: NON-FORMULARY MEDICATION (Omeprazole 40 MG) PO SCH (09:00)
[2020-02-09] MEDS ORDERED: Dapagliflozin [Farxiga] 10 MG PO SCH (09:00)
[2020-02-09] MEDS ORDERED: INSULIN GLARGINE 28 UNIT SUBCUT SCH (09:00)
[2020-02-09] MEDS ORDERED: PANTOPRAZOLE 40 MG VIAL IV ONE (09:25)
[2020-02-09] MEDS: DOCUSATE SODIUM 100 MG CAPSULE PO SCH ×2 (09:49→21:14)
[2020-02-09] MEDS: PANTOPRAZOLE 40 MG VIAL IV SCH (09:49)
[2020-02-09] MEDS: PREGABALIN 100 MG CAPSULE PO SCH ×2 (10:00→21:15)
[2020-02-09 11:13] LABS: Troponin I < 0.015 NG/ML (0.00-0.045)
[2020-02-09] MEDS ORDERED: DEXTROSE 10% 250 ML BAG IV PRN (13:58)
[2020-02-09] MEDS ORDERED: GLUCAGON 1 MG VIAL IM PRN (13:58)
[2020-02-09] MEDS: ENOXAPARIN 40 MG/0.4 ML SYRINGE SUBCUT SCH (21:13)
[2020-02-09] MEDS: CLOPIDOGREL 75 MG TABLET PO SCH (21:14)
[2020-02-09] MEDS: METOPROLOL SUCCINATE XL 25 MG TABLET PO SCH (21:14)
[2020-02-09] MEDS: LOSARTAN 50 MG TABLET PO SCH (21:14)
[2020-02-09] MEDS: ASPIRIN EC 81 MG TABLET PO SCH (21:14)
[2020-02-09] MEDS: OXYBUTYNIN 5 MG TABLET PO SCH (21:15)
[2020-02-09] MEDS: MAGNESIUM OXIDE 400 MG TABLET PO SCH (21:15)
[2020-02-09] MEDS: SIMVASTATIN 10 MG TABLET PO SCH (21:16)
[2020-02-10] MEDS: INSULIN REGULAR 100 UNIT/ML SUBCUT SCH ×3 (05:51→17:55)
[2020-02-10] MEDS: SODIUM CHLORIDE 0.9% 1,000 ML IV SCH ×2 (07:19→16:08)
[2020-02-10] MEDS ORDERED: Etanercept [Enbrel] 50 MG SUBCUT SCH (09:00)
[2020-02-10] MEDS: PREGABALIN 100 MG CAPSULE PO SCH ×2 (09:35→20:24)
[2020-02-10] MEDS: FOLIC ACID 1 MG TABLET PO SCH (09:35)
[2020-02-10] MEDS: DOCUSATE SODIUM 100 MG CAPSULE PO SCH ×2 (09:35→20:22)
[2020-02-10] MEDS: LEVOTHYROXINE 125 MCG TABLET PO SCH (09:35)
[2020-02-10] MEDS: PANTOPRAZOLE 40 MG VIAL IV SCH (09:58)
[2020-02-10 13:10] LABS: Basophils # 0.1 10*3/uL (0.0-0.2); Basophils % 0.9 % (0.0-0.8); Eosinophils # 0.1 10*3/uL (0.0-0.87); Eosinophils % 2.3 % (0.00-10.9); Hematocrit 42.3 VOL% (35.7-47.0); Hemoglobin 14.1 GM/DL (12.0-16.0); Immature Granulocytes % 0.2 %; Immature Granulocytes Absolute 0.01 #; Lymphocytes # 1.9 10*3/uL (1.4-4.0); Lymphocytes % 33.4 % (21.3-54.2); Mean Corpuscular HGB Conc 33.3 GM/DL (32-36); Mean Platelet Volume 9.8 FL (9.6-12.0); Monocytes % 7.7 % (1.7-12.7); Neutrophils % 55.5 % (38.7-73.9); Platelet Count 202 T/CUMM (130-400); Red Blood Count 4.55 MC/CUMM (3.8-5.5); Red Cell Distribution Width 11.8 % (9.3-17.3); White Blood Count 5.6 T/CUMM (4-12)
[2020-02-10] MEDS ORDERED: POTASSIUM CHLORIDE RIDER 10 MEQ in PREMIX 1 EACH IV PRN (14:11)
[2020-02-10] MEDS ORDERED: diphenhydrAMINE CAP 25 MG CAPSULE PO ONE (14:11)
[2020-02-10] MEDS ORDERED: MAGNESIUM SULF RIDER 2 GM in PREMIX 1 EACH IV PRN (14:11)
[2020-02-10] MEDS ORDERED: DIAZEPAM 5 MG TABLET PO ONE (14:11)
[2020-02-10] MEDS ORDERED: LIDOCAINE 1% 20 ML VIAL ONE (14:40)
[2020-02-10] MEDS ORDERED: MIDAZOLAM 2 MG/2 ML VIAL ONE (14:40)
[2020-02-10] MEDS ORDERED: fentaNYL 100 MCG/2 ML VIAL ONE (14:40)
[2020-02-10] MEDS ORDERED: HEPARIN 5,000 UNIT/1 ML VIAL ONE (15:03)
[2020-02-10] MEDS: MAGNESIUM OXIDE 400 MG TABLET PO SCH (20:22)
[2020-02-10] MEDS: ASPIRIN EC 81 MG TABLET PO SCH (20:23)
[2020-02-10] MEDS: METOPROLOL SUCCINATE XL 25 MG TABLET PO SCH (20:23)
[2020-02-10] MEDS: CLOPIDOGREL 75 MG TABLET PO SCH (20:23)
[2020-02-10] MEDS: LOSARTAN 50 MG TABLET PO SCH (20:23)
[2020-02-10] MEDS: OXYBUTYNIN 5 MG TABLET PO SCH (20:23)
[2020-02-10] MEDS: SIMVASTATIN 10 MG TABLET PO SCH (20:28)
[2020-02-10] MEDS ORDERED: IMIPRAMINE 50 MG TABLET PO SCH (21:00)
[2020-02-11] MEDS: INSULIN REGULAR 100 UNIT/ML SUBCUT SCH ×2 (01:31→06:39)
[2020-02-11 05:13] LABS: Basophils # 0.1 10*3/uL (0.0-0.2); Basophils % 0.9 % (0.0-0.8); Eosinophils # 0.2 10*3/uL (0.0-0.87); Eosinophils % 3.2 % (0.00-10.9); Hematocrit 40.2 VOL% (35.7-47.0); Hemoglobin 13.3 GM/DL (12.0-16.0); Immature Granulocytes % 0.3 %; Immature Granulocytes Absolute 0.02 #; Lymphocytes % 31.3 % (21.3-54.2); Mean Corpuscular HGB Conc 33.1 GM/DL (32-36); Mean Corpuscular Volume 92.8 FL (87-102); Mean Platelet Volume 9.8 FL (9.6-12.0); Monocytes % 11.4 % (1.7-12.7); Neutrophils % 52.9 % (38.7-73.9); Red Blood Count 4.33 MC/CUMM (3.8-5.5); Red Cell Distribution Width 11.7 % (9.3-17.3); White Blood Count 6.5 T/CUMM (4-12)
[2020-02-11 05:14] LABS: Platelet Count 169 T/CUMM (130-400)
[2020-02-11 05:29] LABS: Calcium 8.5 MG/DL (8.5-10.1); Osmolality,Calculated 268.1 MOS/KG (273-304)
[2020-02-11 06:18] LABS: Hypochromasia Slight; Microcytosis Slight; Platelet Estimate Adequate
[2020-02-11 08:46] VITALS: BP 115/66
[2020-02-11] MEDS ORDERED: ENOXAPARIN 40 MG/0.4 ML SYRINGE SUBCUT SCH (09:00)
[2020-02-11] MEDS: PREGABALIN 100 MG CAPSULE PO SCH (09:01)
[2020-02-11] MEDS: PANTOPRAZOLE 40 MG VIAL IV SCH (09:01)
[2020-02-11] MEDS: FOLIC ACID 1 MG TABLET PO SCH (09:01)
[2020-02-11] MEDS: DOCUSATE SODIUM 100 MG CAPSULE PO SCH (09:02)
[2020-02-11] MEDS: LEVOTHYROXINE 125 MCG TABLET PO SCH (09:02)
[2020-02-14] MEDS ORDERED: Exenatide Microspheres [Bydureon] 2 MG SUBCUT SCH (15:38)
== END 2020-02-11 12:03 | disposition home or self-care (01) | DRG 287 ==
LOC: EDUNIT# → EDBD → N.EDINP 13:46 → N.ED 13:46 → OBSVTOIN 16:13 → N.TELES 02-09 13:26
PROVIDERS: ADMIT Family Medicine; ATTEND Family Medicine
PROC: CLCCHCL (ICD-10-PCS; 2020-02-10 14:45)

== ENCOUNTER 2021-03-19 20:17 | Observation (INO) ==
[2021-03-19 20:44] LABS: Basophils # 0.1 10*3/uL (0.0-0.2); Eosinophils # 0.3 10*3/uL (0.0-0.87); Eosinophils % 4.2 % (0.00-10.9); Hematocrit 41.8 VOL% (35.7-47.0); Immature Granulocytes % 0.3 %; Immature Granulocytes Absolute 0.02 #; Lymphocytes # 2.8 10*3/uL (1.4-4.0); Lymphocytes % 45.2 % (21.3-54.2); Mean Corpuscular HGB Conc 33.5 GM/DL (32-36); Mean Corpuscular Volume 91.3 FL (87-102); Mean Platelet Volume 9.5 FL (9.6-12.0); Monocytes % 9.9 % (1.7-12.7); Neutrophils % 39.4 % (38.7-73.9); Platelet Count 190 T/CUMM (130-400); Red Blood Count 4.58 MC/CUMM (3.8-5.5); Red Cell Distribution Width 12.2 % (9.3-17.3); White Blood Count 6.3 T/CUMM (4-12)
[2021-03-19 20:55] LABS: INR 0.9; PT Patient Result 10.3 SECS (10.5-12.0); Partial Thromboplastin Time 24.9 SECS (23.9-33.8)
[2021-03-19 21:11] LABS: Alanine Aminotransferase 34 U/L (13-56); Albumin 3.9 G/DL (3.4-5.0); Alkaline Phosphatase 95 U/L (45-117); Aspartate Amino Transferase 18 U/L (0-37); Bilirubin,Total < 0.39 MG/DL (0.20-1.00); Blood Urea Nitrogen 8 MG/DL (7-18); Calcium 9.2 MG/DL (8.5-10.1); Carbon Dioxide 28 MMOL/L (21-32); Estimated Glom Filtration Rate 108 ML/MIN; Glucose 207 MG/DL (74-106); Potassium 3.9 MMOL/L (3.5-5.1); Sodium 136 MMOL/L (136-145); Total Protein 7.6 G/DL (6.4-8.2)
[2021-03-19] MEDS ORDERED: NITROGLYCERIN SL 0.4 MG TABLET SL STA (21:28)
[2021-03-19] MEDS ORDERED: ONDANSETRON 4 MG/2 ML VIAL IV STA (21:28)
[2021-03-19] MEDS ORDERED: MORPHINE 2 MG/1 ML SYRINGE IV STA ×2 (21:28→22:17)
[2021-03-19] MEDS ORDERED: ACETAMINOPHEN 325 MG TABLET PO PRN (22:44)
[2021-03-19] MEDS ORDERED: ONDANSETRON 4 MG/2 ML VIAL IV PRN (22:44)
[2021-03-20] MEDS: oxyCODONE/ACETAMINOPHEN 5-325 MG TABLET PO PRN ×3 (00:25→13:05)
[2021-03-20 01:06] LABS: Basophils # 0.1 10*3/uL (0.0-0.2); Basophils % 1.3 % (0.0-0.8); Eosinophils # 0.2 10*3/uL (0.0-0.87); Eosinophils % 3.7 % (0.00-10.9); Hematocrit 39.5 VOL% (35.7-47.0); Hemoglobin 13.6 GM/DL (12.0-16.0); Immature Granulocytes % 0.3 %; Immature Granulocytes Absolute 0.02 #; Lymphocytes # 2.4 10*3/uL (1.4-4.0); Lymphocytes % 40.4 % (21.3-54.2); Mean Corpuscular HGB Conc 34.4 GM/DL (32-36); Mean Corpuscular Volume 89.8 FL (87-102); Mean Platelet Volume 9.8 FL (9.6-12.0); Monocytes % 8.3 % (1.7-12.7); Platelet Count 172 T/CUMM (130-400); Red Cell Distribution Width 12.1 % (9.3-17.3)
[2021-03-20 01:29] LABS: Osmolality,Calculated 275.7 MOS/KG (273-304); Potassium 3.9 MMOL/L (3.5-5.1)
[2021-03-20] MEDS ORDERED: MORPHINE 2 MG/1 ML SYRINGE IV ONE (01:47)
[2021-03-20] MEDS ORDERED: diphenhydrAMINE CAP 50 MG CAPSULE PO PRN (06:53)
[2021-03-20] MEDS ORDERED: PROMETHAZINE 25 MG TABLET PO PRN (06:53)
[2021-03-20] MEDS ORDERED: DEXTROSE 50% 25 GM/50 ML VIAL IV PRN (06:59)
[2021-03-20] MEDS ORDERED: GLUCAGON 1 MG VIAL IM PRN (06:59)
[2021-03-20] MEDS ORDERED: NF- (Semaglutide [Ozempic] 0.25 mg or 0.5 mg(2 mg/1.5 mL) pen injecto SUBCUT SCH (07:00)
[2021-03-20] MEDS: INSULIN REGULAR 100 UNIT/ML SUBCUT SCH ×4 (08:25→21:15)
[2021-03-20] MEDS ORDERED: SIMVASTATIN 10 MG TABLET PO SCH (09:00)
[2021-03-20] MEDS: INSULIN GLARGINE 100 UNIT/ML SUBCUT SCH (09:32)
[2021-03-20] MEDS: CLOPIDOGREL 75 MG TABLET PO SCH (12:54)
[2021-03-20] MEDS: CETIRIZINE 10 MG TABLET PO SCH (12:54)
[2021-03-20] MEDS: LEVOTHYROXINE 125 MCG TABLET PO SCH (12:54)
[2021-03-20] MEDS: PREGABALIN 100 MG CAPSULE PO SCH ×2 (12:55→21:14)
[2021-03-20] MEDS: PANTOPRAZOLE 40 MG TABLET PO SCH (12:55)
[2021-03-20] MEDS: [UNRECOGNIZED DRUG - OTHER] SUBCUT SCH (13:07)
[2021-03-20] MEDS: IXEKIZUMAB SUBCUT SCH (13:07)
[2021-03-20] MEDS ORDERED: POTASSIUM CHLORIDE RIDER 10 MEQ/100 ML PREMIX IV PRN (14:08)
[2021-03-20] MEDS ORDERED: MAGNESIUM SULF RIDER 2 GM/50 ML PREMIX IV PRN (14:08)
[2021-03-20] MEDS: SODIUM CHLORIDE 0.9% 1,000 ML IV SCH ×3 (14:20→21:43)
[2021-03-20] MEDS ORDERED: DIAZEPAM 5 MG TABLET PO ONE (15:00)
[2021-03-20] MEDS ORDERED: diphenhydrAMINE CAP 50 MG CAPSULE PO ONE (15:00)
[2021-03-20] MEDS ORDERED: KETOROLAC 30 MG/1 ML VIAL IV ONE (16:20)
[2021-03-20] MEDS ORDERED: LOSARTAN 50 MG TABLET PO SCH (21:00)
[2021-03-20] MEDS ORDERED: METOPROLOL SUCCINATE XL 50 MG TABLET PO SCH (21:00)
[2021-03-20] MEDS ORDERED: ASPIRIN EC 81 MG TABLET PO SCH (21:00)
[2021-03-20] MEDS ORDERED: METOPROLOL SUCCINATE XL 25 MG TABLET PO SCH (21:00)
[2021-03-20] MEDS ORDERED: MAGNESIUM OXIDE 400 MG TABLET PO SCH (21:00)
[2021-03-21 03:59] LABS: Basophils # 0.1 10*3/uL (0.0-0.2); Basophils % 1.3 % (0.0-0.8); Eosinophils # 0.2 10*3/uL (0.0-0.87); Eosinophils % 4.6 % (0.00-10.9); Hematocrit 37.3 VOL% (35.7-47.0); Hemoglobin 12.7 GM/DL (12.0-16.0); Immature Granulocytes % 0.4 %; Immature Granulocytes Absolute 0.02 #; Lymphocytes # 1.7 10*3/uL (1.4-4.0); Lymphocytes % 37.9 % (21.3-54.2); Mean Platelet Volume 9.7 FL (9.6-12.0); Monocytes % 12.9 % (1.7-12.7); Neutrophils % 42.9 % (38.7-73.9); Platelet Count 139 T/CUMM (130-400); Red Cell Distribution Width 11.9 % (9.3-17.3); White Blood Count 4.6 T/CUMM (4-12)
[2021-03-21 04:09] LABS: Calcium 8.4 MG/DL (8.5-10.1); Potassium 4.2 MMOL/L (3.5-5.1)
[2021-03-21] MEDS ORDERED: hydrALAZINE 20 MG/1 ML VIAL IV PRN (04:59)
[2021-03-21] MEDS: SODIUM CHLORIDE 0.9% 1,000 ML IV SCH (06:43)
[2021-03-21] MEDS: CLOPIDOGREL 75 MG TABLET PO SCH (08:26)
[2021-03-21] MEDS: INSULIN REGULAR 100 UNIT/ML SUBCUT SCH ×3 (08:27→16:31)
[2021-03-21] MEDS ORDERED: LIDOCAINE 1% 20 ML VIAL ONE (08:29)
[2021-03-21] MEDS ORDERED: DIAZEPAM 5 MG TABLET PO ONE (08:30)
[2021-03-21] MEDS ORDERED: diphenhydrAMINE CAP 50 MG CAPSULE PO ONE (08:30)
[2021-03-21] MEDS: [UNRECOGNIZED DRUG - OTHER] SUBCUT SCH (08:34)
[2021-03-21] MEDS ORDERED: fentaNYL 100 MCG/2 ML VIAL ONE (08:34)
[2021-03-21] MEDS: PREGABALIN 100 MG CAPSULE PO SCH ×2 (08:34→16:31)
[2021-03-21] MEDS: IXEKIZUMAB SUBCUT SCH (08:34)
[2021-03-21] MEDS: INSULIN GLARGINE 100 UNIT/ML SUBCUT SCH (08:34)
[2021-03-21] MEDS ORDERED: MIDAZOLAM 2 MG/2 ML VIAL ONE (08:34)
[2021-03-21] MEDS: LEVOTHYROXINE 125 MCG TABLET PO SCH (08:35)
[2021-03-21] MEDS: PANTOPRAZOLE 40 MG TABLET PO SCH (08:35)
[2021-03-21] MEDS: CETIRIZINE 10 MG TABLET PO SCH (08:35)
[2021-03-21] MEDS ORDERED: HEPARIN 5,000 UNIT/1 ML VIAL ONE (09:07)
[2021-03-21] MEDS ORDERED: DEXTROSE 50% 25 GM/50 ML VIAL IV PRN (10:11)
[2021-03-21 17:03] VITALS: BP 127/80
== END 2021-03-21 17:16 | disposition home or self-care (01) ==
LOC: N.ED 20:17 → N.EDINP 20:17 → N.TELES 03-20 00:08
PROVIDERS: ADMIT Family Medicine; ATTEND Family Medicine
PROC: CLCCHCL (ICD-10-PCS; 2021-03-21 09:15)